=== PATIENT | female | born 1965 | race Caucasian/White ===

== ENCOUNTER → 2021-08-09 | Outpatient (CLI) | payer OTHER | LOC: M LAB 10:38 | PROVIDERS: ATTEND Internal Medicine Gastroenterology | DX: K58.0 Irritable bowel syndrome with diarrhea (principal) ==

== ENCOUNTER 2021-08-28 06:37 | Day surgery (SDC) | payer OTHER ==
[~2021-08-28] VITALS: Ht 167.6 cm; Wt 103.8 kg
[~2021-08-28 06:37] MED LIST: ALIG4CAP PO; BENA20TA PO; BYDU2INJ7 SC; DICY1CAP8 PO; JARD1TAB PO; LORA-243 PO; METF10004 PO; NS 1,000 ML IV ONE; REST0.05 OU; ROSU20TA5 PO; SYNT50TA PO; ZETI10TA16 PO
[2021-08-28] MEDS ORDERED: propofoL 200 MG/20 ML VIAL As Ordered ONE ×2 (07:05→07:49)
[2021-08-28] MEDS ORDERED: LIDOCAINE 2% 100MG/5ML SDV (FOR ANES.) As Ordered ONE (07:05)
[2021-08-28] MEDS ORDERED: FISH1000 PO (07:22)
[2021-08-28] MEDS ORDERED: YUVA10TA3 VA (07:22)
[2021-08-28] MEDS ORDERED: DOXY50CA51 PO (07:22)
[2021-08-28] MEDS ORDERED: VITMTA PO (07:22)
[2021-08-28] MEDS ORDERED: GLYCOPYRROLATE INJ 0.2 MG/ML 2 ML VIAL As Ordered ONE (07:54)
[2021-08-28 08:25] VITALS: BP 119/70
== END 2021-08-28 08:28 | disposition home or self-care (01) ==
LOC: M OPP 06:37
PROVIDERS: ATTEND Internal Medicine Gastroenterology
DX: D12.2 Benign neoplasm of ascending colon (principal); K52.9 Noninfective gastroenteritis and colitis, unspecified; K57.32 Diverticulitis of large intestine without perforation or abscess without bleeding; R93.3 Abnormal findings on diagnostic imaging of other parts of digestive tract; E11.9 Type 2 diabetes mellitus without complications; E03.9 Hypothyroidism, unspecified; Z79.2 Long term (current) use of antibiotics; Z79.810 Long term (current) use of selective estrogen receptor modulators (SERMs); Z79.84 Long term (current) use of oral hypoglycemic drugs; Z79.899 Other long term (current) drug therapy; Z88.0 Allergy status to penicillin; Z88.8 Allergy status to other drugs, medicaments and biological substances; Z99.89 Dependence on other enabling machines and devices